=== PATIENT | female | born 1965 | race Caucasian/White ===

== ENCOUNTER 2017-01-06 13:47 | Emergency (ER) | payer OTHER ==
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
[2017-01-06 16:14] VITALS: BP 126/83
== END 2017-01-06 16:07 | disposition home or self-care (01) ==
LOC: UCEAST 13:47
DX: S16.1XXA Strain of muscle, fascia and tendon at neck level, initial encounter (principal); V49.88XA Car occupant (driver) (passenger) injured in other specified transport accidents, initial encounter; Y92.410 Unspecified street and highway as the place of occurrence of the external cause; Y99.9 Unspecified external cause status; M54.9 Dorsalgia, unspecified; M54.2 Cervicalgia; Z72.0 Tobacco use
CPT/HCPCS: 72050; 99212; G0463

== ENCOUNTER 2017-12-27 15:38 | Emergency (ER) | payer OTHER ==
[2017-12-27 15:48] VITALS: BP 124/92
--- NOTE | 2017-12-27 16:11 | UC ---
Back Pain HPI - HPI Summary HPI Summary: 52 y/o female presents to the urgent care c/o lower back pain radiating to mid back pain for 4 days s/p bending over at home. Pt reports Hx of chronic back pain for many years and has been seen at pain Management by AUDIO VISUAL PRODUCTION SPECIALIST Sue Rodríguez. She also sees DR Lillian Manzano for never branch blocking for her Hx chronic axial low back pain and RT side spondylolysis. Last nerve branch bloc was performed on 12/14/2017. She also states she took Vicodin today for her pain she had left over from her full dental extraction done on 10/2017. - History of Current Complaint Chief Complaint: UCBackPain Stated Complaint: BACK AND RIB PAIN Time Seen by Provider: 12/27/17 16:11 Hx Obtained From: Patient ?: No Onset/Duration: Gradual Onset, Lasting Days - 4 days, Still Present, Worse Since - yesterday Timing: Constant Severity Initially: Moderate Severity Currently: Severe Pain Intensity: 10 Pain Scale Used: 0-10 Numeric Back Pain: Is Discrete @ - lower back, Radiates To - mid upper back Character: Sharp, Spasmodic Aggravating Factor(s): Movement, Lifting, Bending Alleviating Factor(s): Rest, OTC Meds, Other - Vicodin PO she toon this morning Associated Signs And Symptoms: Positive: Negative. Negative: Swelling, Redness , Bruising, Fever, Weakness, Numbness, Tingling, Abdominal Pain, Flank Pain, Bladder Incontinence, Bowel Incontinence, Weight Loss, Pain with Weight Bearing Related History: Similar Episode Dx As - Chronic axial and lower back pain w/ Rt side spondilolysis - Risk Factors AAA Risk Factors: Negative TAD Risk Factors: Negative Cauda Equina Risk Factors: Negative Epidural Abscess Risk Factors: Negative - Allergies/Home Medications Allergies/Adverse Reactions: Allergies Allergy/AdvReac Type Severity Reaction Status Date / Time aspirin Allergy Difficulty Verified 12/27/17 15:49 Breathing latex Allergy Difficulty Verified 12/27/17 15:49 Breathing Penicillins Allergy Difficulty Verified 12/27/17 15:49 Breathing trolamine salicylate AdvReac Itching Verified 12/27/17 15:49 aspercreme lidocaine patches Allergy Itching Uncoded 12/27/17 15:49 Home Medications: Home Medications Hydrocodone/APAP 5/300 (NF) [Vicodin 5 MG/300 MG(NF)] 0.5 tab PO TID 12/27/17 [ History Confirmed 12/27/17] PMH/Surg Hx/FS Hx/Imm Hx Previously Healthy: Yes Other Neurological History: Chronic axial - Surgical History Surgical History: Yes Surgery Procedure, Year, and Place: HYSTERECTOMY 1998. FOOT SURGERY AN INFANT - FRACTURE. LEFT SHOULDER 02/2015. ALL TEETH REMOVED - OCTOBER 2017 - Social History Alcohol Use: Occasionally Substance Use Type: Prescribed Smoking Status (MU): Current Every Day Smoker Type: Cigarettes Amount Used/How Often: 1/2-1PPD Household Exposure Type: Cigarettes Physical Exam - Summary Physical Exam Summary: Vital Signs Reviewed: Yes Appearance: Well-Appearing, Well-Nourished, obese female sitting in the examining table w/o any apparent distress. Eyes: Positive: Conjunctiva Clear - PERRLA, EOMI. ENT: Positive: Normal ENT inspection, Hearing grossly normal, Pharynx normal, TMs normal, Uvula midline Neck: Positive: Supple, Nontender, No Lymphadenopathy Respiratory: Positive: Chest non-tender, Lungs clear, Normal breath sounds, No respiratory distress Cardiovascular: Positive: RRR, No Murmur, Pulses Normal, Brisk Capillary Refill Abdomen Description: Positive: Nontender, No Organomegaly, Soft. Negative: CVA Tenderness (R), CVA Tenderness (L) Bowel Sounds: Positive: Present Musculoskeletal: Positive: Strength Intact, BACK: Patient walked into the urgent care room with symmetric ambulation, No signs of limping, antalgic, able to bear weight. No signs of trauma, No masses palpated. Point tenderness at the level of T8-S1, w/ paraspinal muscle tenderness on palpation, No CVAT, no flank ecchymosis . No sacroiliac notch tenderness, No saddle anesthesia.ROM: limited due to pain, Straight Leg Raise: negative. Patellar reflexes: brisk, symmetric Muscle strength lower extremities. Dorsiflexion/ plantar flexion of ankles. Heel/ toe walk. Lower extremities: Femoral, popliteal, posterior tibial , and dorsalis pedis pulses WNL. Pt refuse rectal exam Neurological: Positive: Alert, Muscle Tone Normal Psychological Exam: Normal Skin Exam: Normal Triage Information Reviewed: Yes Vital Signs: Initial Vital Signs Temp 97.3 F 12/27/17 15:43 Pulse 117 12/27/17 15:43 Resp 12 12/27/17 15:43 BP 124/92 12/27/17 15:43 Pulse Ox 97 12/27/17 15:43 Back Pain Course/Dx - Differential Dx/Diagnosis Differential Diagnosis/HQI/PQRI: Arthritis, Fracture, Herniated Disc, Renal Colic, Strain, Sprain Provider Diagnoses: 1- Acute upper steven pain. 2- Acute lower back pain s/p bending. 3- Muscle spasm. 4-Elevated BP w/o Hx of HTN Discharge - Discharge Plan Condition: Stable Disposition: HOME Prescriptions: Cyclobenzaprine TAB* [Flexeril 10 MG TAB*] 10 mg PO TID PRN #21 tab PRN Reason: Spasms - Back predniSONE TAB* [Deltasone 20 MG TAB*] 20 mg PO DAILY #11 tab Patient Education Materials: Low Back Strain (ED), Low-Sodium Diet (ED), Muscle Spasm (ED), Thoracic Back Strain (ED) Referrals: Almas Prince, A[employer] VIS[employer] PRODUCTION SPECIALIST [Primary Care Provider] - 3 Days Additional Instructions: 1- Please take Prednisone PO as directed to alleviate symptoms. 2- Take Flexeril PO as directed for muscle spasm. Please do not drive while taking the medication. Please do not drive it is making you too drowsy. 3- Wear a back support. Avoid strenuous exercise of heavy lifting. 4- Please follow up with your PCP Nohemi in 2-3 days for further management on your chronic back pain 5-Your BP is elevated today. please decrease salt in your diet, monitor BP and if it continues to be elevated please f/u with your PCP for further management - Billing Disposition and Condition Condition: STABLE Disposition: Home
[2017-12-27] MEDS ORDERED: Ketorolac INJ* 30 MG/ML 1 ML VIAL IM ONE (16:54)
--- NOTE | 2017-12-27 17:49 | RAD ---
INDICATION: Back pain COMPARISON: 2 view chest x-ray April 08, 2016 TECHNIQUE: Routine 2 view imaging was performed FINDINGS: Bones: There are no acute bony findings. There is osteopenia. There are minor arthritic findings consisting of endplate sclerosis and minor vertebral spurring. There are minor mid thoracic compression deformities, unchanged Alignment: Mild kyphosis, unchanged Disc spaces: The disc spaces are well-maintained Soft tissues: There are no soft tissue abnormalities. IMPRESSION: OSTEOPENIA WITH MINOR WEDGE COMPRESSION DEFORMITIES OF THE MIDTHORACIC VERTEBRAE WITH RESULTANT KYPHOSIS. NO ACUTE FINDINGS.
--- NOTE | 2017-12-27 17:51 | RAD ---
INDICATION: Back pain lumbar spine COMPARISON: MRI lumbar spine June 19, 2016 TECHNIQUE: Routine PA, lateral, and oblique imaging was performed . FINDINGS: Bones: There are no acute bony findings. There are minor arthritic changes consisting of facet arthropathy at the lower 2 lumbar levels Alignment: There is mildly exaggerated lumbar lordosis Disc spaces: The disc spaces are well-maintained Soft tissues: There are no soft tissue abnormalities. IMPRESSION: MINOR FACET ARTHROPATHY AND EXAGGERATED LUMBAR LORDOSIS. NO ACUTE FINDINGS.
== END 2017-12-27 18:34 | disposition home or self-care (01) ==
LOC: UCEAST 15:38
DX: M54.5 Low back pain (principal); M54.89 Other dorsalgia; M62.838 Other muscle spasm; F17.210 Nicotine dependence, cigarettes, uncomplicated; Z88.6 Allergy status to analgesic agent; Z91.040 Latex allergy status; Z88.0 Allergy status to penicillin; Z88.8 Allergy status to other drugs, medicaments and biological substances; Y92.9 Unspecified place or not applicable
CPT/HCPCS: 72070; 72110; 81003; 96372; 99212; G0463; J1885

== ENCOUNTER 2019-02-21 14:58 | Inpatient (IN) | payer MEDICARE, MEDICAID ==
[2019-02-21] MEDS ORDERED: NS 0.9% 1000 ML** 1,000 ML IV ONE (15:00)
--- NOTE | 2019-02-21 15:14 | ED ---
Neurological HPI - HPI Summary HPI Summary: Seen in casar at 14:59 This patient is a 53 year old F presenting to [facility] by EMS with a chief complaint of weakness on left side since 0900 today. Pt had a ARIZMENDI on 02/20/19 at noon, and she had a mild ARIZMENDI today, drift weaker on left than right, and neck is bothering her. Pt has COPD, and osteoarthritis. Medications reviewed. Allergies noted - History of Current Complaint Stated Complaint: POSS STROKE PER EMS Time Seen by Provider: 02/21/19 15:00 Hx Obtained From: Patient Onset/Duration: Gradual Onset, Still Present Timing: Constant Onset Severity: Mild Current Severity: Mild Pain Intensity: 3 Pain Scale Used: 0-10 Numeric Character: Motor Weakness Aggravating: Nothing Alleviating: Nothing Associated Signs and Symptoms: Positive: Headache, Neck Pain/Stiffness, Nothing - Motor weakness - Allergy/Home Medications Allergies/Adverse Reactions: Allergies Allergy/AdvReac Type Severity Reaction Status Date / Time aspirin Allergy Difficulty Verified 02/21/19 15:25 Breathing latex Allergy Difficulty Verified 02/21/19 15:25 Breathing Penicillins Allergy Difficulty Verified 02/21/19 15:25 Breathing trolamine salicylate AdvReac Itching Verified 02/21/19 15:25 aspercreme lidocaine patches Allergy Itching Uncoded 03/11/18 13:01 Home Medications: Home Medications Albuterol HFA INHALER* [Ventolin HFA Inhaler*] 1 puff INH Q6H PRN 02/21/19 [ History Confirmed 02/21/19] Atorvastatin* [Lipitor*] 40 mg PO DAILY 02/21/19 [History Confirmed 02/21/19] Ca/D3/Mag Ox/Zinc/Pigment Making Supervisor/[place]/Bor [Calcium 600-D3 Plus Caplet] 1 tab PO DAILY 02/21 [History Confirmed 02/21/19] Cyclobenzaprine TAB* [Flexeril 10 MG TAB*] 10 mg PO TID PRN 02/21/19 [History Confirmed 02/21/19] Docusate CAP* [Colace Cap*] 100 mg PO BID 02/21/19 [History Confirmed 02/21/19] LoraTADine TAB(NF) [Claritin 10 MG TAB(NF)] 10 mg PO DAILY 02/21/19 [History Confirmed 02/21/19] Multivitamins/Minerals TAB* [Theragran/minerals TAB*] 1 tab PO DAILY 02/21/19 [ History Confirmed 02/21/19] Sertraline* [Zoloft*] 100 mg PO DAILY 02/21/19 [History Confirmed 02/21/19] amLODIPine TAB* [Norvasc 5 mg TAB*] 5 mg PO DAILY 02/21/19 [History Confirmed ] traZODone TAB* [Desyrel TAB*] 150 mg PO BEDTIME 02/21/19 [History Confirmed 09/06] PMH/Surg Hx/FS Hx/Imm Hx Endocrine/Hematology History: Reports: Hx Thyroid Disease - hypothyroid Denies: Hx Diabetes Cardiovascular History: Reports: Hx Hypertension Denies: Hx Congestive Heart Failure, Hx Pacemaker/ICD Respiratory History: Reports: Hx Chronic Obstructive Pulmonary Disease (COPD) GI History: Reports: Other GI Disorders - CHRONIC CONSTIPATION History: Reports: Other Problems/Disorders - blood in urine Denies: Hx Renal Disease Musculoskeletal History: Reports: Hx Arthritis - KNEES AND HANDS Denies: Hx Osteoporosis, Hx Scoliosis Sensory History: Reports: Hx Contacts or Glasses - READING Denies: Hx Hearing Aid Opthamlomology History: Reports: Hx Contacts or Glasses - READING Neurological History: Reports: Other Neuro Impairments/Disorders - PINCHED NERVES IN NECK Denies: Hx Headaches Psychiatric History: Reports: Hx Anxiety - OCC PANIC ATTACKS Denies: Hx Panic Disorder - Cancer History Cancer Type, Location and Year: ENDOMETRIOSIS - Surgical History Surgery Procedure, Year, and Place: HYSTERECTOMY 1998. FOOT SURGERY AN INFANT - FRACTURE. LEFT SHOULDER 02/2015. ALL TEETH REMOVED - OCTOBER 2017 Hx Anesthesia Reactions: No Infectious Disease History: Denies: Hx Clostridium Difficile, Hx Hepatitis, Hx Human Immunodeficiency Virus (HIV), Hx of Known/Suspected MRSA, Hx Shingles, Hx Tuberculosis, Hx Known/ Suspected VRE, Hx Known/Suspected VRSA, History Other Infectious Disease - Family History Known Family History: Positive: Hypertension - Social History Alcohol Use: Occasionally Substance Use Type: Reports: Prescribed Smoking Status (MU): Current Every Day Smoker Type: Cigarettes Amount Used/How Often: 1/2-1PPD Review of Systems Negative: Fever Positive: Headache, Weakness All Other Systems Reviewed And Are Negative: Yes Physical Exam - Summary Physical Exam Summary: Constitutional: Well-developed, Well-nourished, Alert. (-) Distressed Skin: Warm, Dry HENT: Normocephalic; Atraumatic Eyes: Conjunctiva normal Neck: Musculoskeletal ROM normal neck. (-) JVD, (-) Stridor, (-) Tracheal deviation Cardio: Rhythm regular, rate normal, Heart sounds normal; Intact distal pulses; The pedal pulses are 2+ and symmetric. Radial pulses are 2+ and symmetric. (-) Murmur Pulmonary/Chest wall: Effort normal. (-) Respiratory distress, (-) Wheezes, (-) Rales Abd: Soft, (-) tenderness, (-) Distension, (-) Guarding, (-) Rebound Musculoskeletal: (-) Edema Lymph: (-) Cervical adenopathy Neuro: Alert, Oriented x3, Limb Ataxia present in One Limb, Left Leg Effort Against Waldo, Left Arm Drifts 10 seconds, Facial Minor Paralysis Psych: Mood and affect Normal Triage Information Reviewed: Yes Vital Signs On Initial Exam: Initial Vital Signs Temp 97.6 F 02/21/19 15:22 Pulse 79 02/21/19 15:22 Resp 19 02/21/19 15:22 BP 127/91 02/21/19 15:22 Pulse Ox 95 02/21/19 15:22 Vital Signs Reviewed: Yes Diagnostics - Laboratory Result Diagrams: 02/21/19 15:32 02/21/19 15:00 Lab Statement: Any lab studies that have been ordered have been reviewed, and results considered in the medical decision making process. - Radiology CXR Radiology Interpretation Completed By: Radiologist Summary of Radiographic Findings: CXR reveals, per radiologist, IMPRESSION: NO ACTIVE CARDIOPULMONARY DISEASE IS NOTED. ED physician has reviewed this radiology report. - CT Brain CT CT Interpretation Completed By: Radiologist Summary of CT Findings: Brain CT reveals, per radiologist, IMPRESSION: No intracranial mass or hemorrhage is noted. ED physician has reviewed this radiology report. Head CTA CT Interpretation Completed By: Radiologist Summary of CT Findings: Head CTA reveals, per radiologist, IMPRESSION: 1. LIMITED STUDY. 2. THERE IS CHRONIC APPEARING OCCLUSION OF THE M1 SEGMENTS OF THE MIDDLE CEREBRAL ARTERIES BILATERALLY WITH MULTIPLE SMALL ARTERIAL-ARTERIAL COLLATERALS. 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 3. ATHEROSCLEROSIS. 4. NO INTERNAL CAROTID ARTERY STENOSIS BY [employer] CRITERIA. 5. EMPHYSEMA. ED physician has reviewed this radiology report. - EKG 1530 Cardiac Rate: NL - 77 bpm EKG Rhythm: Sinus Rhythm Summary of EKG Findings: An EKG at 15:30 reveals sinus rhythm 77 bpm. No STEMI NIH Scale - NIH Scale Level of Consciousness: Alert/Keenly Responsive Ask Patient the Month and His/Her Age: Both Correct Ask Pt to Open/Close Eyes and Customer Service Advocate/Release Non-Paretic Hand: Both Correctly Best Gaze (Only Horizontal Eye Movement): Normal Visual Field Testing: No Visual Loss Facial Paresis-Pt to Smile & Close Eyes or Grimace Symmetry: Minor Paralysis Motor Function - Right Arm: No Drift-Holds 10 Seconds Motor Function - Left Arm: Drifts LT 10 seconds Motor Function - Right Leg: No Drift-Holds 10 Seconds Motor Function - Left Leg: Effort Against Waldo Limb Ataxia-Must be out of Proportion to Weakness Present: Present in One Limb Sensory (Use Pinprick to Test Arms/Legs/Trunk/Face): Normal Best Language (Describe Picture, Name Items): No Aphasia Dysarthria (Read Several Words): Normal Extinction and Inattention: No Abnormality Total Score: 5 Re-Evaluation - Re-Evaluation First Eval Re-Evaluation Time: 15:09 Comment: There was no bleed on CT Course/Dx - Course Course Of Treatment: Patient was brought in as a code nieves. Patient was outside the TPA window upon arrival but did have some left-sided deficits. Patient had a stat CT head which showed no intracranial hemorrhage. Patient had a CTA which showed undiagnosed moyamoya disease. Patient likely suffered a small CVA secondary to this and was admitted to medicine for further management. - Diagnoses Provider Diagnoses: Mills mills disease, CVA (cerebral vascular accident) During the Visit The Following Alert/Code Occurred: Code Johnson - Physician Notifications Discussed Care Of Patient With: Irma Laird Time Discussed With Above Provider: 16:00 Instructed by Provider To: Other - 16:00 Spoke to Eitan, who recommends admission 16:[address] Mccartney who accepts pt for admission. - Critical Care Time Critical Care Time: 30-74 min - 35 mins Discharge ED - Sign-Out/Discharge Documenting (check all that apply): Patient Departure - Admit Patient Received Moderate/Deep Sedation with Procedure: No - Discharge Plan Condition: Stable Disposition: ADMITTED TO [facility] - Billing Disposition and Condition Condition: STABLE Disposition: Admitted to [facility] - Attestation Statements Document Initiated by Joselyn: Yes Documenting Scribe: Rosa Mendez Provider For Whom Scribe is Documenting (Include Credential): Tk Butterfield MD Scribe Attestation: Rosa Carrasco , scribed for Tk Butterfield MD on 02/21/19 at 2054. Scribe Documentation Reviewed: Yes Provider Attestation: The documentation as recorded by the mariselibe, Rosa Mendez accurately reflects the service I personally performed and the decisions made by Tk flores MD Status of Scribe Document: Viewed
[2019-02-21] MEDS ORDERED: Iodixanol* (CONTRAST) 320 MG/ML 100 ML SDV IV ONE (15:15)
[2019-02-21 15:49] LABS: ABS Basophils 0.1 10^3/ul (0-0.2); ABS Eosinophils 0.3 10^3/ul (0-0.6); ABS Lymphocytes 3.8 10^3/ul (1.0-4.8); ABS Monocytes 0.6 10^3/ul (0-0.8); ABS Neutrophils 4.1 10^3/ul (1.5-7.7); Eosinophil % 3.5 %; Hematocrit 42 % (35-47); Hemoglobin 14.5 g/dL (12.0-16.0); Lymphocyte % 42.5 %; Mean Corpuscular HGB Conc 34 g/dL (31-36); Mean Corpuscular Hemoglobin 32 pg (27-31); Mean Corpuscular Volume 93 fL (80-97); Mean Platelet Volume 9.1 fL (7.4-10.4); Platelet Count 192 10^3/uL (150-450); Red Blood Count 4.54 10^6 /uL (3.70-4.87); Red Cell Distribution Width 13 % (10-15); White Blood Count 8.9 10^3/uL (3.5-10.8)
[2019-02-21 16:01] LABS: Albumin 3.7 g/dL (3.2-5.2); Calcium 9.3 mg/dL (8.6-10.3); Total Bilirubin 0.3 mg/dL (0.2-1.0)
[2019-02-21 16:07] LABS: Albumin/Globulin Ratio 1.6 (1-3); C Reactive Protein 2.43 mg/L (<8.01); EGFR African American 97.1 (>60); EGFR Non-African American 80.2 (>60); Globulin 2.3 g/dL (2-4); HDL Cholesterol 37.7 mg/dL
[2019-02-21 16:13] LABS: Activated Partial Thrombo Time 40.9 seconds (26.0-38.0); INR 0.98 (0.82-1.09)
[2019-02-21 16:33] LABS: Urine Appearance Clear; Urine Bilirubin Negative (Negative); Urine Blood Negative (Negative); Urine Color Yellow; Urine Glucose Negative (Negative); Urine Ketones Negative (Negative); Urine Nitrite Negative (Negative); Urine Protein Negative (Negative); Urine Urobilinogen Negative (Negative)
[2019-02-21] MEDS ORDERED: Magnesium Hydroxide LIQ* 30 ML UDC PO PRN (17:10)
[2019-02-21] MEDS ORDERED: Al Hydrox/Mg Hydrox/Simet LIQ* 30 ML UDC PO PRN (17:10)
[2019-02-21] MEDS ORDERED: Albuterol 2.5 MG/3 ML NEB.SOL* (0.083%) INH PRN (17:10)
[2019-02-21] MEDS ORDERED: Acetaminophen TAB* 325 MG PO PRN (17:10)
[2019-02-21] MEDS ORDERED: Famotidine TAB* 20 MG PO PRN (17:19)
[2019-02-21] MEDS ORDERED: ALPRAZolam TAB* 0.25 MG PO PRN (17:21)
[2019-02-21] MEDS ORDERED: Enoxaparin(*) 40 MG/0.4 ML SYR SUBCUT SCH (18:00)
[2019-02-21 18:11] LABS: TSH (Thyroid Stimulating Horm) 2.13 mcIU/mL (0.34-5.60)
[2019-02-21 18:23] LABS: Erythrocyte Sed Rate 9 mm/Hr (0-29)
--- NOTE | 2019-02-21 19:13 | CONS ---
NEUROLOGY CONSULTATION NOTE: DATE OF CONSULT: 02/21/19 CONSULTING PROVIDER: Tk Butterfield MD REASON FOR CONSULT: Gaurav nieves was activated for sudden onset left-sided weakness. CHIEF COMPLAINT: Left-sided weakness. HISTORY OF PRESENT ILLNESS: Mrs. Nataly Vazquez is a 53-year-old right-handed female who has chronic low back pain, who presented with sudden onset left hemiparesis. The patient stated that she was in normal state of health on 02/21 at 7:30 a.m. At 8:30 a.m., she noticed a sudden onset left arm and left leg weakness. She was having trouble moving the left hand to perform her normal activities of daily living. She went to her son at approximately 9:30 - 10 o'clock and complained to him that something is not right and she feels weak on the left side. She also complained of numbness and tingling sensation in left upper extremity. She denied any new neck pain. She has a history of degenerative disk disease in the cervical and lumbar spine and always has chronic neck and low back pain that has not changed over the years. She did notice a headache over the last 2 days that is mild in nature, holocephalic, not associated with photo or phonophobia. She denied any vomiting. Currently, she does not have a headache. Accu-Chek was slightly elevated in the 250s. Her blood pressure was in normal range. NIH stroke scale was 6, 1 for mild left facial droop, 2 for left arm drift, 1 for left leg drift, decreased sensation on the left face and arm, and mild 1 limb dysmetria on the left upper extremity. CT head without contrast showed no acute abnormality. CTA head and neck showed irregularity of bilateral proximal MCA vessels with concerning severe stenosis or near occlusion on the left proximal MCA. Final report is not available. We are waiting for the radiology read. PAST MEDICAL HISTORY: Chronic neck and low back pain, muscle spasms, tobacco abuse. MEDICATIONS: 1. Trazodone 150 mg p.o. at bedtime. 2. Sertraline 100 mg p.o. daily. 3. Multivitamins 1 tablet by mouth daily. 4. Loratadine 10 mg p.o. daily. 5. Docusate 100 mg p.o. b.i.d. 6. Amlodipine 5 mg p.o. daily. 7. Atorvastatin 40 mg p.o. daily. 8. Albuterol 1 puff inhaler every 6 hours. 9. Cyclobenzaprine 10 mg p.o. t.i.d. ALLERGIES: ASPIRIN, LATEX, PENICILLIN, TROLAMINE, SALSALATE. FAMILY HISTORY: Her sister suffers from epilepsy since 4 years of age. SOCIAL HISTORY: She is on disability. She lives with her son. She smokes 6-7 cigarettes a day. She has been smoking since she was 12 years of age. She denied any alcohol use. She used to use cocaine in the past, but has been cocaine-free for over 7 years. REVIEW OF SYSTEMS: A 14-point review of systems was obtained and otherwise negative except for what is mentioned in the HPI. PHYSICAL EXAM: Vitals: Temperature of 97.6, pulse of 79, respiratory rate of 20, oxygen saturation of 94%, blood pressure of 127/91. General: Well- nourished, well- developed female, in no acute distress. She has edentulous. Head: Atraumatic, normocephalic without any obvious abnormality. Eyes: Conjunctivae/corneas are clear. Neck is supple and symmetrical with no carotid bruits. No nuchal rigidity. Negative Brudzinski and Kernig signs. Cardiovascular: Regular rate, rhythm with normal S1, S2. No murmurs. Chest: Clear to auscultation bilaterally with no wheezing or rhonchi. Extremities: Normal range of motion with no cyanosis, hammertoes, or high arches. Skin: No skin lesions or laceration. Psych: Affect is broad. Slightly anxious mood with easy to establish rapport. Neurological Examination: Mental status: Awake, alert, oriented to person, place, time, and general circumstances. Speech and language including expression, comprehension, repetition were assessed and found to be normal. Pupils are equal, round, and reactive to light. Extraocular muscles are intact. Reduced sensation on the left side of face, mild loss of the nasolabial fold on the left side. Tongue is symmetrical and midline with no atrophy or fasciculation. Motor Examination: 5/5 strength in upper and lower extremities on the right. She has reduced strength in the left arm graded as 3/5 and the left leg graded as 3/5 throughout. She has retained strength in the upper and lower extremities distally bilaterally. Reflexes 2+ on the right and 1+ on the left and absent at the ankles on the left. There is flexor plantar response on the right, there is mute plantar response on the left. Coordination: Normal baluzq-nc-vquz and rjri-za-nxri testing on the right, but there is qkhpsl-fg-ysap dysmetria on the left, with normal ecvi-uh-mlhq on the left. Gait was not assessed due to acuity of the stroke call. LABORATORY DATA: Labs are not available at this time. ASSESSMENT: Mrs. Nataly Vazquez is a 53-year-old female with history of tobacco use who presents with sudden onset left hemiparesis. On examination, her NIH stroke scale was 5 with confirmed finding of left arm greater than leg weakness with mild left facial droop. CT head showed no evidence of acute stroke. CTA head and neck showed a preliminary finding of ragged appearing bead-like pattern of bilateral MCA vascular distribution with a questionable concern of contralateral, which would be asymptomatic in this case, high-grade stenosis or near occlusion of the left MCA vascular distribution. At this current moment, the patient is not a candidate for IV t-PA due to being outside the therapeutic window. If she does have evidence of acute large vessel occlusion, she will need to be transported to a tertiary center like [facility] or the [facility]. We are pending a final read on the CTA. Other than ischemic stroke, other differential diagnosis includes vasculitis, reversible cerebral vasoconstriction syndrome, or drug-induced arteriopathy. The patient does not have any new neck pain to suspect cervical spondylosis with radiculopathy and that would not explain some of her facial symptoms. RECOMMENDATIONS: Please obtain a final read from Radiology for the CTA report. If there is a large vessel occlusion, the patient will need to be transported to a tertiary center. If there is no evidence of occlusion, then admit the patient to the hospitalist service for further evaluation. At that time, we could order an MRI of the brain with and without contrast, ESR, CRP, lipid panel , urine toxicology screen, PT/OT/SENIOR LEAD JAVA DEVELOPER evaluation and treatment. If she passes a dysphagia screen, start her on Plavix 75 mg daily. Continue the statin therapy at this time. Continue IV hydration with normal saline. Allow permissive hypertension. Please obtain a 2D echo with bubble study. Neuro checks every 4 hours. I will continue to follow. [id number]/[facility] #: [id number] [facility]ISCH HOSPITALNicol
[2019-02-21] MEDS: SPIRIVA Respimat* (tiotropium) 2.5 mcg/inh Inhaler INH SCH (20:02)
--- NOTE | 2019-02-21 20:36 | HP ---
CC: Arnoldo Schmidt DO* HISTORY AND PHYSICAL: DATE OF ADMISSION: 02/21/19. PRIMARY CARE PHYSICIAN: Arnoldo Schmidt DO HEALTHCARE PROXY: Her son, Matt. CODE STATUS: Full code. CHIEF COMPLAINT: Acute onset of left-sided weakness. HISTORY OF PRESENT ILLNESS: Ms. Vazquez is a 53-year-old woman with degenerative disk disease, osteoarthritis of her hips and knees, major depressive disorder, panic attack disorder, and COPD who is presenting with acute onset of left-sided weakness. She reports that she was in her usual state of health this morning when she woke up, but then later when she was paying her bills on her phone, she suddenly experienced weakness of the entire left side of her body including the left side of her face, her left arm, and her left leg. She reports that the weakness was associated with a numbness, tingling feeling in her left arm and left leg and that her left face felt swollen. She thinks she was having word finding difficulty and her son reports at bedside that he perceived that her speech was slurred this morning. She thinks that all of these symptoms are resolving except for persistence of left arm weakness which has improved. Her son also stated that he thinks her speech is nearly back to normal now. She denies associated palpitations, headache, chest pain, shortness of breath, abdominal pain, nausea, vomiting, constipation , diarrhea, lower extremity edema, or dysuria. Complete 10- point review of systems was performed and pertinent positives and negatives are listed in this HPI. PAST MEDICAL HISTORY: 1. Degenerative disk disease complicated by chronic back pain. 2. Osteoarthritis. The patient reports it is diffuse, but notably around hips and knees. 3. COPD. 4. Panic attack disorder. 5. Major depressive disorder. 6. Hypertension. 7. GERD. HOME MEDICATIONS: 1. Sertraline 100 mg daily. 2. Trazodone 150 mg nightly. 3. Alprazolam 0.25 mg every 8 hours as needed for panic attack. 4. Amlodipine 5 mg daily. 5. Atorvastatin 40 mg daily. 6. Albuterol every 6 hours as needed for shortness of breath. 7. Loratadine 10 mg daily. 8. Multivitamin 1 tablet daily. 9. Diclofenac p.o. as needed for pain. 10. Omeprazole 40 mg daily. ALLERGIES: The patient reports ASPIRIN, LATEX, and PENICILLIN cause difficulty breathing; LIDOCAINE PATCH has caused itching. FAMILY HISTORY: The patient reports that she is adopted and therefore does not know her father's side. She did know that her mother from endometrial cancer and she is in touch with a half-sister who has epilepsy. SOCIAL HISTORY: The patient lives with her son, Matt, who is also home health aide working 23 hours per week to care for her. He is also her healthcare proxy. 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 She reports active tobacco use, now down to 7 cigarettes per day and she started approximately 41 years ago at the age of 12 and has intermittently been a 1-pack per day smoker. She rarely uses alcohol. She quit using crack cocaine in 1994. PHYSICAL EXAMINATION GENERAL: She is a well-appearing woman in no acute distress, who does appear older than her stated age. She is alert and interactive and very pleasant. VITAL SIGNS: Afebrile, heart rate 70s, blood pressure 136/91, respiratory rate 15, oxygen saturation 97% on room air. HEENT: With OP clear moist mucous membranes, edentulous. NECK: No JVD. Supple. LUNGS: Clear to auscultation bilaterally. No increased work of breathing. HEART: Regular rate and rhythm. No murmurs, gallops, or rubs. ABDOMEN: Soft, nontender, nondistended. BACK: No CVA tenderness. EXTREMITIES: Warm and well perfused. No evidence of edema. NEURO: A and O x3. Cranial nerves II through XII intact. Motor strength 4/5 on elbow flexion and extension of left arm, 5/5 on right. Hip flexion 4/5 on the left, 5/5 on right. Sensation intact bilaterally. No pronator drift. DIAGNOSTIC STUDIES/LAB DATA: CBC, BMP, LFTs, and coags are unremarkable. LDL 65 with triglycerides 256. CRP 2.4 and TSH 2.1. Vitamin B12 is pending. UA is clear. Brain CT with no intracranial mass or hemorrhage noted. Chest x-ray without active cardiopulmonary disease. CTA with chronic appearing occlusion of the M1 segments of middle cerebral arteries bilaterally with multiple small arterial-arterio collaterals. The appearance is consistent with moyamoya disease. No internal carotid artery stenosis by NASCET criteria. CTA notable for atherosclerosis and emphysema. Brain MRI with multiple chronic appearing lacunar infarcts of the frontal lobes bilaterally. No restricted diffusion to suggest acute infarct. ASSESSMENT AND PLAN: Ms. Vazquez is a 53-year-old woman with a history of degenerative disk disease, osteoarthritis, hypertension, chronic obstructive pulmonary disease, major depressive disorder, and anxiety who is presenting with acute onset of left-sided weakness with slurred speech, now significantly improved. 1. Cerebrovascular accident. Her CTA was concerning for moyamoya disease and she has lacunar infarcts on her brain MRI. She will be admitted to complete stroke workup which includes being continued on telemetry, ordering an echo with bubble study, and following up further neuro recommendations which are pending. She has an allergy to ASPIRIN, but is likely a candidate for Plavix pending further neuro recommendations. The patient is already on atorvastatin 40 and her LDL is 65. We will also follow up vitamin B12. PT/OT and speech therapy consult have been ordered. 2. Major depressive disorder. Continue the patient's home sertraline and trazodone. 3. Gastroesophageal reflux disease. Continue famotidine twice a day as needed for reflux. We will discuss with the patient possible contribution from home diclofenac, which she takes orally. 4. Anxiety and history of panic attack. Continue home Xanax 0.25 every 8 hours as needed for anxiety. This is I-STOP confirmed. 5. Chronic obstructive pulmonary disease. The patient reports needing daily use of her albuterol, which she thought she was supposed to take every day anyway. We will instead initiate the patient on tiotropium with albuterol and to be used as needed and we will prescribe for the patient to take as an outpatient pending insurance approval. 6. Hypertension. Continue amlodipine 5 mg daily. 7. Allergies. Continue histamine patrice daily. 8. DVT prophylaxis. Continue Lovenox 40 mg subcu daily. 9. Code status. The patient is full code. TIME SPENT: Approximately 60 minutes was spent on admission of this patient, more than half of which was spent at bedside for interview and exam. [id number]/[facility] #: [id number] [place]
[2019-02-21] MEDS ORDERED: traZODone TAB* 100 MG PO SCH (21:00)
[2019-02-22] MEDS ORDERED: Perflutren Lipid Microsphere* 3 ML VIAL ONE (07:56)
[2019-02-22] MEDS ORDERED: Cyanocobalamin INJ * 1,000 MCG/ML VIAL 1 ML VIAL IM ONE ×2 (08:10→10:10)
--- NOTE | 2019-02-22 08:10 | PN ---
Subjective Date of Service: 02/22/19 Interval History: No events overnight. PT/OT/POTATO GRADER canceled by Neuro, as patient's symptoms have resolved. Started on Plavix today. Labs significant for B12 deficiency. Start injections today. Objective Active Medications: Acetaminophen (Tylenol Tab*) 975 mg PO Q8H PRN PRN Reason: PAIN - MILD Al Hydrox/Mg Hydrox/Simethicone (Maalox Plus*) 30 ml PO Q6H PRN PRN Reason: INDIGESTION Albuterol (Ventolin 2.5 Mg/3 Ml Neb.Clementina*) 2.5 mg INH RT.N1CV-NYGAN AWAKE PRN PRN Reason: sob/wheezing Alprazolam (Xanax Tab*) 0.25 mg PO TID PRN PRN Reason: ANXIETY Amlodipine Besylate (Norvasc Tab*) 5 mg PO DAILY [facility] Atorvastatin Calcium (Lipitor*) 40 mg PO DAILY [facility] Cetirizine HCl (Zyrtec*) 10 mg PO DAILY [facility] Clopidogrel Bisulfate (Plavix Tab*) 75 mg PO DAILY [facility] Enoxaparin Sodium (Lovenox(*)) 40 mg SUBCUT Q24H [facility] Last Admin: 02/21/19 19:31 Dose: 40 mg Famotidine (Pepcid Tab*) 20 mg PO BID PRN PRN Reason: HEARTBURN Magnesium Hydroxide (Milk Of Magnhever Liq*) 30 ml PO Q4H PRN PRN Reason: CONSTIPATION Multivitamins/Minerals (Theragran/Minerals Tab*) 1 tab PO DAILY [facility] Sertraline HCl (Zoloft*) 100 mg PO DAILY [facility] Tiotropium [place] (Spiriva Respimat 2.5 Mcg) 2 puff INH DAILY [facility] Last Admin: 02/21/19 20:02 Dose: Not Given Trazodone HCl (Desyrel Tab*) 150 mg PO BEDTIME [facility] Last Admin: 02/21/19 21:13 Dose: 150 mg Vital Signs - 8 hr 02/22/19 02:10 Temperature 97.7 F Pulse Rate 80 Respiratory 20 Rate Blood Pressure 117/78 (mmHg) O2 Sat by Pulse 93 Oximetry Oxygen Devices in Use Now: None Appearance: well appearing, alert and interactive Ears/Nose/Mouth/Throat: Clear Oropharnyx, Mucous Membranes Moist Neck: NL Appearance and Movements; NL JVP Respiratory: Symmetrical Chest Expansion and Respiratory Effort, Clear to Auscultation Cardiovascular: NL Sounds; No Murmurs; No JVD, RRR Abdominal: NL Sounds; No Tenderness; No Distention, No Hepatosplenomegaly Lymphatic: No Cervical Adenopathy Extremities: No Edema Skin: No Rash or Ulcers Neurological: Alert and Oriented x 3, NL Sensation, NL Muscle Strength and Tone Result Diagrams: 02/21/19 15:32 02/21/19 15:00 Assess/Plan/Problems-Billing Assessment: 53W with DDD, OA, HTN, COPD, MDD, and anxiety who presents with acute onset of L -sided weakness and slurred speech. Imaging concerning for ischemic stroke. - Patient Problems (1) Transient ischemic attack Status: Acute Code(s): G45.9 - TRANSIENT CEREBRAL ISCHEMIC ATTACK, UNSPECIFIED SNOMED Code(s): 476481942 Comment: Symptoms resolved. Given old stroke on MRI, will initiate patient on Plavix. Encouraged smoking cessation and will rx NRT. To f/u with Neuro in 6- 8 weeks for repeat CTA. (2) Vitamin B12 deficiency Status: Acute Code(s): E53.8 - DEFICIENCY OF OTHER SPECIFIED B GROUP VITAMINS SNOMED Code(s): 562104844 Comment: IM B12 injection today. Will discharge on high-dose oral supplement.
[2019-02-22] MEDS: SPIRIVA Respimat* (tiotropium) 2.5 mcg/inh Inhaler INH SCH (08:19)
[2019-02-22] MEDS ORDERED: Sertraline* 100 MG TAB PO SCH (09:00)
[2019-02-22] MEDS ORDERED: Atorvastatin* 40 MG TAB PO SCH (09:00)
[2019-02-22] MEDS ORDERED: Multivitamins/Minerals TAB PO SCH (09:00)
[2019-02-22] MEDS ORDERED: amLODIPine TAB* 5 MG PO SCH (09:00)
[2019-02-22] MEDS ORDERED: Clopidogrel TAB* 75 MG PO SCH (09:00)
[2019-02-22] MEDS ORDERED: Cetirizine* 10 MG TAB PO SCH (09:00)
--- NOTE | 2019-02-22 09:00 | ECHO ---
*[facility]* [place] [address] Fax #: [phone] Transthoracic Echocardiogram Patient: Nataly Vazquez : 1965 Study Date: 02/22/2019 Age: 53 Gender: F HR: 79 bpm Height: 66 in /167.6 cm BSA: 2.11 m^2 Weight: 225.5 lb /102.5 kg BMI: 36.5 kg/m^2 *Legal Word Processor: * Jocelynn Jett [facility] *Referring Physician: * Lissa Mccartney *Reading Physician: * Winter Davis MD Indications: CVA. History: Smoker,obesity. Conclusions Summary: - Procedure narrative: Image quality was poor.due to body habitus. - Left ventricle: Systolic function is normal. The estimated ejection fraction is 55-60%. Wall motion is normal; there are no regional wall motion abnormalities. - Right ventricle: Systolic function is normal. - Atrial septum: No defect or patent foramen ovale is identified. Bubble study was negative, suboptimal imaging. - All valves appear grossly structurally normal with normal function. - No prior echocardiogram available to compare. Recommendations: If clinically indicated consider transesophageal echocardiogram for optimal evaluation of possible cardioembolic source of stroke. Study data: Transthoracic echocardiogram. Procedure: Transthoracic echocardiography was performed. Image quality was poor. The study was technically limited due to body habitus and Smoking history. Intravenous Definity , 3 mlswas administered. A bubble study was performed. Agiatated saline was used for the bubble study. Complete 2D, spectral Doppler, and color flow Doppler. Patient status: Observation. Patient room number: 452. Rhythm: Normal sinus rhythm. Findings Left ventricle: The cavity size is normal. Wall thickness is normal. Systolic function is normal. The estimated ejection fraction is 55-60%. Wall motion is normal; there are no regional wall motion abnormalities. Left ventricular diastolic function parameters are normal. Right ventricle: Poorly visualized. The cavity size is normal. Systolic function is normal. Ventricular septum: Well visualized. Left atrium: Poorly visualized. The atrium is normal in size. Right atrium: Poorly visualized. Atrial septum: Fairly well visualized. No defect or patent foramen ovale is identified. Bubble study was negative, suboptimal imaging. Mitral valve: Well visualized. The leaflets are normal thickness. No echocardiographic evidence for prolapse. There is no evidence of stenosis. There is no significant regurgitation. Aortic valve: Poorly visualized. The valve is trileaflet. The leaflets are normal thickness. There is no evidence of stenosis. There is no significant regurgitation. Tricuspid valve: Poorly visualized. The leaflets are normal thickness. There is no evidence of stenosis. There is no significant regurgitation. Pulmonic valve: Poorly visualized. The leaflets are normal thickness. There is no evidence of stenosis. There is no significant regurgitation. Aorta: The aorta is poorly visualized and normal size. Pericardium: There is no pericardial effusion. No evidence of pleural fluid accumulation. Pulmonary arteries: Poorly visualized. Systemic veins: Not well visualized. Pulmonary veins: Not well visualized. Measurements Left ventricle Value Ref Aortic valve Value Ref CAROLEE, LAX 5.0 cm 3.8 - Charlie diam, ED 1.9 cm ---- 5.2 Charlie diam/bsa, ED 0.9 cm/m^2 ---- ESD, LAX (H) 4.3 cm 2.2 - Peak v, S 1.28 m/sec ---- 3.5 VTI, S 29.7 cm ---- FS, LAX (L) 14 % - 45 Mean grad, S 3.0 mm Hg ---- PW, ED, LAX 0.7 cm 0.6 - Peak grad, S 7.0 mm Hg ---- 0.9 LVOT/AV, VTI ratio 0.55 ---- FS (L) 14 % - 45 Mid-wall FS 9 % -------- Mitral valve Value Ref PW, ED 0.7 cm 0.6 - Peak E 0.74 m/sec ---- 0.9 Peak A 0.67 m/sec ---- PW/ID, ED 0.14 -------- Decel time 162 ms ---- E', lat charlie, TDI 10.8 cm/sec >=10.0 Peak grad, D 2.2 mm Hg -- -- E/e', lat charlie, TDI 7 -------- Peak E/A ratio 1.1 ---- E', med charlie, TDI 10.8 cm/sec >=7.0 E/e', med charlie, TDI 7 -------- Pulmonic valve Value Ref E', avg, TDI 10.8 cm/sec -------- Peak v, S 0.49 m/sec ---- E/e', avg, TDI 7 <=14 Peak grad, S 1.0 mm Hg -- -- LVOT Value Ref Aortic root Value Ref Peak heath, S 0.74 m/sec -------- Root diam 3.1 cm <4.2 VTI, S 16.2 cm -------- Root max diam, ED 3.1 cm <4.2 Mean grad, S 1 mm Hg -------- Aortic arch Value Ref Ventricular septum Value Ref Arch diam 2.4 cm ---- IVS, ED 0.6 cm 0.6 - 0.9 Decending aorta Value Ref Angelica peak heath 0.45 m/sec ---- Right ventricle Value Ref CAROLEE, LAX 2.4 cm -------- CAROLEE minor ax, A4C 2.9 cm 1.9 - mid 3.5 Legend: (L) and (H) michelle values outside specified reference range. Prepared and electronically signed by Winter Davis MD 02/22/2019 08:59
[2019-02-22] MEDS ORDERED: Cyanocobalamin TAB* 500 MCG PO SCH (11:00)
[2019-02-22 13:20] VITALS: BP 107/74
--- NOTE | 2019-02-22 13:38 | PN ---
Subjective Date of Service: 02/22/19 Length of Stay: 1 Days Neurology is following for TIA Interval History: She is feeling well this morning. The left sided weakness has resolved and now she has her full strength back. She was very much scared yesterday. She was extremely worried about her symptoms. She thinks the symptoms resolved at around 6-7 pm yesterday. She denied any headaches. Labs and other diagnostic testing: B12: 177 TSH: 2.13 LDL: 65 CTA head and neck: chronic appearing occlusion of the M1 segments of the middle cerebral arteries bilaterally with multiple small arterial-arterial collaterals. 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 MRI brain without contrast: multiple chronic appearing lacunar infarcts of both the frontal lobes bilaterally. No restricted diffusion to suggest an acute infarct. 2D TTE: EF 55-60%. No PFO EKG: sinus rhythm Review of Systems: Denied CP, SOB, or palpitations. Objective Vital Signs 02/21/19 02/21/19 02/21/19 15:22 15:23 15:26 Temperature 97.6 F Pulse Rate 79 80 Respiratory 19 20 Rate Blood Pressure 127/91 127/91 (mmHg) O2 Sat by Pulse 95 94 95 Oximetry 02/21/19 02/21/19 02/21/19 15:53 16:01 16:23 Temperature Pulse Rate 86 81 Respiratory 19 15 19 Rate Blood Pressure 121/77 134/80 (mmHg) O2 Sat by Pulse 95 97 Oximetry 02/21/19 02/21/19 02/21/19 16:53 17:01 17:42 Temperature Pulse Rate 83 Respiratory 19 19 20 Rate Blood Pressure 136/91 150/94 (mmHg) O2 Sat by Pulse 96 Oximetry 02/21/19 02/21/19 02/21/19 17:53 18:00 18:23 Temperature Pulse Rate 80 75 Respiratory 16 21 25 Rate Blood Pressure 141/73 137/88 (mmHg) O2 Sat by Pulse 97 97 Oximetry 02/21/19 02/21/19 02/21/19 18:40 19:25 19:35 Temperature 98.3 F 97.1 F 97.5 F Pulse Rate 83 73 78 Respiratory 20 16 17 Rate Blood Pressure 137/88 134/75 147/84 (mmHg) O2 Sat by Pulse 97 100 98 Oximetry 02/21/19 02/21/19 02/22/19 20:25 23:58 02:10 Temperature 97.9 F 97.7 F Pulse Rate 80 80 Respiratory 18 20 Rate Blood Pressure 91/56 117/78 (mmHg) O2 Sat by Pulse 96 96 93 Oximetry 02/22/19 02/22/19 02/22/19 08:21 08:29 10:00 Temperature 97.6 F Pulse Rate 80 76 Respiratory 14 16 16 Rate Blood Pressure 125/77 (mmHg) O2 Sat by Pulse 98 98 Oximetry 02/22/19 11:52 Temperature 97.8 F Pulse Rate 82 Respiratory 19 Rate Blood Pressure 107/74 (mmHg) O2 Sat by Pulse 98 Oximetry Intake and Output Last 24 Hours 02/20/19 02/21/19 02/22/19 02/23/19 06:59 06:59 06:59 06:59 Intake Total 1600 Balance 1600 Weight 226 lb 9.6 oz Intake: IV Fluids 1000 Oral 600 Other: # Voids 0 Oxygen Devices in Use Now: None Neurology Exam: General: Well nourished, well developed, and in no acute distress HEENT: Normocephelic/atraumatic, sclera anicteric, mucous membranes moist Neck: Supple Chest: Clear to auscultation bilaterally Cardiovascular: Regular rate and rhythm without murmurs, rubs, gallops Extremities: No clubbing, cyanosis, or edema Neurological Findings: Awake, alert, and oriented to person, place, and time. Speech: fluent without dysarthria, repetition intact Cranial Nerve: PERRL, EOM intact, VFF, no nystagmus, face symmetric bilaterally , facial sensation intact, hearing intact to finger rub bilaterally, palate elevates symmetrically, tongue midline, SCM and Trapezius s/s. Motor: s/s throughout, proximal and distal extremities x4 tone/bulk normal Sensation: intact to LT/PP bilaterally upper and lower extremities Deep Tendon Reflex: 2+ symmetric in the upper/lower extremities, except for 1+ at the ankles. Babinski - down going Finger to nose, rapid alternating movements intact without tremor Gait: intact with good arm swing and stride Result Diagrams: 02/21/19 15:32 02/21/19 15:00 Assessment/Plan Mrs. Nataly Vazquez is a 53-year-old female who has a past medical history significant for cocaine use for 7 years (quit in the ), tobacco use daily since 12 years of age, hypertension, dyslipidemia, who is aspirin naive and cannot tolerate aspirin who presented with transient left hemiparesis. 1. 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 NIHSS today is 0. 2. Remote asymptomatic bilateral frontal lacunar stroke due to [id number] emboli from proximal MCA occlusion. 3. Tobacco abuse 4. Dyslipidmia- normal LDL level. continue statin therapy 5. Vitamin B12 deficiency- low at 177. She has noticed increased fatigue and memory loss over the past few months. Hopefully supplementation will help improve some of these symptoms. Recommendations: - Education about smoking cessation and advised her to quit smoking immediately - Spent 30 minutes educating the patient about the new diagnosis of arteriopathy. Diagrams and pictures were drawn and provided for better understanding. - Plavix 75 mg daily - Consider repeating a CTA head to confirm the occlusion or see if this would be a case of reversible cerebral vasoconstriction syndrome (less likely since collaterals have formed which suggests chronic occlusion). - Continue statin therapy - Start cyanocobalamin 1,000 mcg PO daily. She was given one IM injection - No need for PT/OT/[facility] [facility] services since the patient is asymptomatic at this point - Follow-up with [facility] neurology in 6 weeks. We will arrange an appointment. Time spent: 45 minutes.
--- NOTE | 2019-02-22 22:59 | DS ---
CC: Arnoldo Schmidt DO; Dr. Laird DISCHARGE SUMMARY: DATE OF ADMISSION: 02/21/19 DATE OF DISCHARGE: 02/22/19 PRIMARY CARE PHYSICIAN: Arnoldo Schmidt DO PRIMARY DIAGNOSES: 1. Middle cerebral artery vascular territory TIA. 2. Remote asymptomatic bilateral frontal lacunar stroke due to artery to artery emboli from proximal middle cerebral artery occlusion. 3. Tobacco use. 4. Vitamin B12 deficiency. SECONDARY DIAGNOSES: 1. Degenerative disk disease, complicated by chronic back pain. 2. Osteoarthritis. 3. Chronic obstructive pulmonary disease. 4. Panic attack disorder. 5. Major depressive disorder. 6. Hypertension. 7. Gastroesophageal reflux disease. CONSULTS: Dr. Laird of Neurology. DISCHARGE MEDICATIONS: 1. Clopidogrel 75 mg daily. 2. Cyanocobalamin/vitamin B12 1000 mcg daily. 3. Nicotine patch 7 mg every 24 hours 1 patch transdermally daily. 4. Albuterol inhaler 1 puff every 6 hours as needed for shortness of breath. 5. Atorvastatin 40 mg daily. 6. Amlodipine 5 mg daily. 7. Loratadine 10 mg daily. 8. Sertraline 100 mg daily. 9. Trazodone 150 mg at bedtime. 10. Multivitamins. HISTORY OF PRESENT ILLNESS / HOSPITAL COURSE: Ms. Vazquez is a 53-year-old woman with degenerative disk disease and osteoarthritis complicated by chronic pain, major depressive disorder, panic attack disorder, COPD, hypertension, who is presenting with acute onset of left- sided weakness. She reports that she is in her usual state of health on morning of presentation when she had woken up; however, later when she was paying her bills on her phone, she suddenly experienced weakness of the entire left side of her body including the left side of her face, her left arm, and her left leg. She reports that the weakness was associated with numbness, tingling feeling in her left arm and left leg and that her left face felt swollen. She thinks she was having word finding difficulty and her son reports at bedside that he perceived that her speech was slurred in the morning. The patient thinks all of these symptoms are resolving except for persistence of left arm weakness, but has significantly improved. Her son states that he thinks her speech is back to normal now. In the emergency room, the patient had undergone a brain CTA that was concerning for chronic appearing occlusion of the M1 segments of the middle cerebral arteries bilaterally with multiple small arterial-arteriolar collaterals, which was concerning for moyamoya disease. However, a brain MRI in the ER showed multiple chronic appearing lacunar infarcts of the frontal lobes bilaterally without restricted diffusion to suggest an acute infarct. Given the patient's persistent left arm weakness, she was admitted for PT/OT evaluation. Her labs were largely unremarkable except for noted vitamin B12 deficiency with a level of 177, so she was given B12 injection during admission, by next morning the patient's symptoms had resolved so physical therapy evaluation was canceled. The patient had been initiated on Plavix due to her allergy to aspirin and her old strokes noted on MRI. The patient reports feeling back to her baseline and ready to return home. She was extensively educated on the importance of smoking cessation and she is at high risk for repeat cerebrovascular events. PERTINENT STUDIES AND LABS: CBC, BMP, and LFTs and coags are unremarkable. Vitamin B12 is 177. TSH 2.13. UA normal. Brain CT without intracranial mass or hemorrhage noted. Head CTA with chronic appearing occlusion of the M1 segments of the middle cerebral arteries bilaterally with multiple small arterial-arteriolar collaterals. The appearance is consistent with moyamoya disease. No internal carotid artery stenosis by NASCET criteria. Emphysema. Brain MRI with multiple chronic appearing lacunar infarcts of the frontal lobes bilaterally. No restricted diffusion is suggest acute infarct. ZULMA with bubble with poor image quality due to body habitus. Left ventricle systolic function normal with EF 55% to 60% without wall motion abnormalities. Atrial septum without defect or PFO, bubble study negative. Valves appear grossly structurally normal. DISCHARGE PLAN: The patient is to follow up closely with her primary care physician for ongoing cerebrovascular disease risk management. She should also follow up with Neurology in approximately 6 weeks for repeat CTA. The patient was extensively educated on importance of smoking cessation and she was prescribed nicotine patch per her request on discharge. Also, given her vitamin B12 deficiency she was discharged on high dose oral B12 supplement, but may need further B12 injections, which she can receive with her primary care physician. Lastly, she was started on Plavix for secondary prevention for further ischemic events. No other significant changes were made to her home medications. She should eat a healthy diet and low in processed foods and exercise regimens will help. She was educated on return precautions, which include but are not limited to recurrence and focal weakness or slurred speech. DISPOSITION: Home. CONDITION: Improved. TIME SPENT: Approximately 60 minutes was spent on discharge of this patient, more than half of which was spent with care coordination or at bedside for interview and exam. [id number]/[facility] #: [id number] GAL[place]
== END 2019-02-22 13:10 | disposition home or self-care (01) | DRG 47 ==
LOC: ED 14:58 → MEDTELE 17:10
PROVIDERS: ADMIT Internal Medicine; ATTEND Internal Medicine
DX: G45.8 Other transient cerebral ischemic attacks and related syndromes (principal); I67.5 Moyamoya disease; E53.8 Deficiency of other specified B group vitamins; J44.9 Chronic obstructive pulmonary disease, unspecified; F41.0 Panic disorder [episodic paroxysmal anxiety]; F32.9 Major depressive disorder, single episode, unspecified; I10 Essential (primary) hypertension; K21.9 Gastro-esophageal reflux disease without esophagitis; G89.29 Other chronic pain; F41.9 Anxiety disorder, unspecified; E78.5 Hyperlipidemia, unspecified; F17.210 Nicotine dependence, cigarettes, uncomplicated; M50.30 Other cervical disc degeneration, unspecified cervical region; M51.36 Other intervertebral disc degeneration, lumbar region; M62.838 Other muscle spasm; M16.0 Bilateral primary osteoarthritis of hip; M17.0 Bilateral primary osteoarthritis of knee; Z86.73 Personal history of transient ischemic attack (TIA), and cerebral infarction without residual deficits; Z79.51 Long term (current) use of inhaled steroids; Z79.899 Other long term (current) drug therapy; Z88.0 Allergy status to penicillin; Z88.8 Allergy status to other drugs, medicaments and biological substances; Z88.6 Allergy status to analgesic agent; Z91.040 Latex allergy status; Z80.49 Family history of malignant neoplasm of other genital organs
CPT/HCPCS: 36415; 70450; 70496; 70498; 70551; 71045; 80053; 80061; 81003; 82607; 83605; 84443; 84484; 85025; 85610; 85652; 85730; 86140; 93005; 93306; 94640; 99284; 99406; A9270-GY; C8929; G8978-GP-CI; G8979-GP-CI; G8980-GP-CI; J1650; J3420; J3535; Q9967